=== PATIENT | male | born 1955 | race Caucasian/White ===

== ENCOUNTER 2022-05-06 12:59 | Emergency (ER) | payer MEDICARE ==
[~2022-05-06] VITALS: Ht 182.9 cm; Wt 70.3 kg
--- NOTE | ~2022-05-06 | EKG ---
[facility] [address] [facility] [place], [place] [address] Draft EK completed, results pending confirmation PATIENT NAME: EDENILSONDOMINIQUE O Electrocardiogram DATE OF : 57 PHYSICIAN: PRELIMINARY REPORT #: [id number] REPORT IS CONFIDENTIAL AND NOT TO BE RELEASED WITHOUT AUTHORIZATION
--- NOTE | 2022-05-07 07:44 | EKG ---
[facility] [address] [facility] [place], [place] [address] Signed Sinus bradycardia Right bundle branch block Left anterior fascicular block Bifascicular block Anterior infarct , age undetermined T wave abnormality, consider lateral ischemia Abnormal ECG No previous ECGs available Confirmed by CASSIE LYNN MD ([id number]) on 05/07/2022 7:43:50 AM Electronically Signed By: CASSIE LYNN MD 05/07/22 0744 PATIENT NAME: EDENILSONDOMINIQUE Ankush Electrocardiogram DATE OF : 57 PHYSICIAN: CASSIE LYNN MD REPORT #: [id number] REPORT IS CONFIDENTIAL AND NOT TO BE RELEASED WITHOUT AUTHORIZATION
--- NOTE | 2022-05-07 07:49 | EKG ---
[facility] [address] [place] [address] Signed Sinus bradycardia Right bundle branch block Left anterior fascicular block Bifascicular block Possible Lateral infarct (cited on or before 06-MAY-2022) Abnormal ECG When compared with ECG of 06-MAY-2022 17:56, (Unconfirmed) Serial changes of Lateral infarct present Confirmed by CASSIE LYNN MD ([id number]) on 05/07/2022 7:49:36 AM Electronically Signed By: CASSIE LYNN MD 05/07/22 0749 PATIENT NAME: DOMINIQUE PYLE Electrocardiogram DATE OF : 57 PHYSICIAN: CASSIE LYNN MD REPORT #: [id number] REPORT IS CONFIDENTIAL AND NOT TO BE RELEASED WITHOUT AUTHORIZATION
--- NOTE | 2022-05-07 07:50 | EKG ---
[facility] [address] [facility] [place] [address] Signed Normal sinus rhythm Right bundle branch block Left anterior fascicular block Bifascicular block Cannot rule out Inferior infarct (masked by fascicular block?) , age undetermined Anterolateral infarct , age undetermined Abnormal ECG No previous ECGs available Confirmed by CASSIE LYNN MD ([id number]) on 05/07/2022 7:50:44 AM Electronically Signed By: CASSIE LYNN MD 05/07/22 0750 PATIENT NAME: DOMINIQUE PYLE Ankush Electrocardiogram DATE OF : 57 PHYSICIAN: CASSIE LYNN MD REPORT #: [id number] REPORT IS CONFIDENTIAL AND NOT TO BE RELEASED WITHOUT AUTHORIZATION
== END 2022-05-06 21:45 | disposition short-term general hospital (02) ==
LOC: ED 12:59
DX: J93.9 Pneumothorax, unspecified (principal); I21.4 Non-ST elevation (NSTEMI) myocardial infarction; Z20.822 Contact with and (suspected) exposure to COVID-19; Z79.01 Long term (current) use of anticoagulants
CPT/HCPCS: 31500; 36415; 70450; 71045; 71250; 80053; 83605; 84484; 85025; 87502; 93005; 93010; 94002; 96365; 96366; 96367; 96375; 96376; 99285-25; A9270; C9803; J0171; J0330; J1170; J1644; J2060; J2405; J2704; J7030; Q2009; U0003